=== PATIENT | female | born 1940 | race Caucasian/White ===

== ENCOUNTER 2018-08-26 12:07 | Outpatient (CLI) | payer MEDICARE, BC ==
--- NOTE | 2018-08-26 14:45 | ULT ---
THYROID SONOGRAM: HISTORY: Thyroid nodule. FINDINGS: Right thyroid lobe is 4.6 cm with a homogeneous echotexture. No focal masses. Isthmus is 0.5 cm. Left thyroid lobe is 3.3 cm in length. Centrally, an oval hypoechoic well circumscribed nodule is 0. 5 x 0.5 x 0.3 cm. IMPRESSION: Very small nonspecific hypoechoic solid nodule left thyroid lobe. 0.5 cm. POS: MICHELLE
== END 2018-08-26 12:08 | disposition home or self-care (01) ==
LOC: BICULT 12:07
PROVIDERS: ATTEND Otolaryngology Plastic Surgery within the Head & Neck
DX: E04.1 Nontoxic single thyroid nodule (principal)
CPT/HCPCS: 76536

== ENCOUNTER 2018-09-02 15:19 | Outpatient (CLI) | payer MEDICARE, BC | END 2018-09-02 15:20 | disposition home or self-care (01) | LOC: BICMAMMO 15:19 | PROVIDERS: ATTEND Internal Medicine | DX: Z12.31 Encounter for screening mammogram for malignant neoplasm of breast (principal); Z80.3 Family history of malignant neoplasm of breast; Z85.3 Personal history of malignant neoplasm of breast | CPT/HCPCS: 77063; 77067 ==

== ENCOUNTER 2019-09-11 13:06 | Outpatient (CLI) | payer MEDICARE, BC ==
--- NOTE | 2019-09-11 13:59 | MMO ---
Bilateral MAMMO Bilat Screen [facility]. CLINICAL HISTORY: Patient is 78 years old and is seen for screening. The patient has the following family history of breast cancer: 2 maternal aunts and paternal aunt. The patient has a history of right Stereotatic Biopsy in June, - benign, left Lumpectomy in 07/2003 - malignant and left Radiation Therapy in 2002 - 35 treatments. VIEWS: The views performed were: bilateral craniocaudal with tomosynthesis; bilateral mediolateral oblique with tomosynthesis; left mediolateral oblique; and left exaggerated craniocaudal. FILMS COMPARED: The present examination has been compared to prior imaging studies performed at [facility] on 08/13/2015, 08/14/2016, 08/27/2017 and 09/02/2018. This study has been interpreted with the assistance of computer-aided detection. MAMMOGRAM FINDINGS: There are scattered fibroglandular densities. Finding 1: There are stable post operative changes seen in the left breast. Finding 2: There are stable benign appearing calcifications seen in both breasts. Finding 3: There is a biopsy clip seen in the right breast. There are no suspicious masses, suspicious calcifications, or new areas of architectural distortion. IMPRESSION: THERE IS NO MAMMOGRAPHIC EVIDENCE OF MALIGNANCY. A ROUTINE FOLLOW-UP MAMMOGRAM IN 1 YEAR IS RECOMMENDED. THE RESULTS OF THIS EXAM WERE SENT TO THE PATIENT. ACR BI-RADS Category 2 - Benign finding MAMMOGRAPHY NOTE: 1. A negative mammogram report should not delay a biopsy if a dominant of clinically suspicious mass is present. 2. Approximately 10% to 15% of breast cancers are not detected by mammography. 3. Adenosis and dense breasts may obscure an underlying neoplasm. Reported by: SARA OCBOS MD Electonically Signed: [id number]
== END 2019-09-11 13:07 | disposition home or self-care (01) ==
LOC: BICMAMMO 13:06
PROVIDERS: ATTEND Internal Medicine
DX: Z12.31 Encounter for screening mammogram for malignant neoplasm of breast (principal); Z80.3 Family history of malignant neoplasm of breast
CPT/HCPCS: 77063; 77067

== ENCOUNTER 2020-09-13 10:14 | Outpatient (CLI) | payer MEDICARE, BC ==
--- NOTE | 2020-09-13 10:51 | MMO ---
Bilateral MAMMO Bilat Screen [facility]. CLINICAL HISTORY: Patient is 79 years old and is seen for screening. The patient has the following family history of breast cancer: 2 maternal aunts and paternal aunt. The patient has a history of right Stereotatic Biopsy in June, - benign, left Lumpectomy in 07/2003 - malignant and left Radiation Therapy in 2002 - 35 treatments. VIEWS: The views performed were: bilateral craniocaudal with tomosynthesis and bilateral mediolateral oblique with tomosynthesis. FILMS COMPARED: The present examination has been compared to prior imaging studies performed at [facility] on 08/14/2016, 08/27/2017, 09/02/2018 and 09/11/2019. This study has been interpreted with the assistance of computer-aided detection. MAMMOGRAM FINDINGS: There are scattered fibroglandular densities. New mass density mid left breast. In the right breast, there are no suspicious masses, calcifications or areas of architectural distortion. IMPRESSION: FINDING IN THE LEFT BREAST REQUIRES ADDITIONAL EVALUATION. SPOT COMPRESSION IS RECOMMENDED. AN ULTRASOUND EXAM IS RECOMMENDED IF NEEDED. ADDITIONAL IMAGING. THE RESULTS OF THIS EXAM WERE SENT TO THE PATIENT. ACR BI-RADS Category 0 - Incomplete: Need additional imaging evaluation. [facility] will notify the patient of the need for additional imaging services. MAMMOGRAPHY NOTE: 1. A negative mammogram report should not delay a biopsy if a dominant of clinically suspicious mass is present. 2. Approximately 10% to 15% of breast cancers are not detected by mammography. 3. Adenosis and dense breasts may obscure an underlying neoplasm. Reported by: MITCHEL VAZQUEZ MD Electonically Signed: [id number]
== END 2020-09-13 10:15 | disposition home or self-care (01) ==
LOC: BICMAMMO 10:14
PROVIDERS: ATTEND Internal Medicine
DX: Z12.31 Encounter for screening mammogram for malignant neoplasm of breast (principal); R92.8 Other abnormal and inconclusive findings on diagnostic imaging of breast; N63.20 Unspecified lump in the left breast, unspecified quadrant; Z91.89 Other specified personal risk factors, not elsewhere classified; Z85.3 Personal history of malignant neoplasm of breast; Z80.3 Family history of malignant neoplasm of breast; Z98.890 Other specified postprocedural states
CPT/HCPCS: 77063; 77067

== ENCOUNTER 2020-09-23 08:53 | Outpatient (CLI) | payer MEDICARE, BC ==
--- NOTE | 2020-09-23 09:26 | ULT ---
EXAM: US Breast Limited Lt PROVIDED CLINICAL HISTORY: Abnormal mammogram COMPARISON: Diagnostic mammogram 09/23/2020 FINDINGS: Limited sonographic interrogation of the left breast was performed in the region of mammographic conc guero at the 12:00 position. There is a irregularly marginated, hypoechoic mass with posterior shadowing demonstrated in the region of mammographic concern. This measures at least 1.[address] dimension. IMPRESSION: 1.2 cm irregular hypoechoic mass, for which ultrasound-guided biopsy is recommended. Findings and rec ommendations discussed with the patient and questions answered. BI-RADS 4 -- suspicious abnormality, biopsy recommended
--- NOTE | 2020-09-23 09:26 | MMO ---
Left Breast MAMMO Unilat Diag [facility]. CLINICAL HISTORY: Patient is 79 years old and is seen for additional evaluation requested from prior study. The patient has the following family history of breast cancer: 2 maternal aunts and paternal aunt. The patient has a history of right Stereotatic Biopsy in June, - benign, left Lumpectomy in 07/2003 - malignant and left Radiation Therapy in 2002 - 35 treatments. VIEWS: The views performed were: left craniocaudal spot compression with tomosynthesis; left mediolateral oblique spot compression with tomosynthesis; and left mediolateral with tomosynthesis. FILMS COMPARED: The present examination has been compared to prior imaging studies performed at [facility] on 09/02/2018, 09/11/2019, 09/13/2020 and 09/23/2020. This study has been interpreted with the assistance of computer-aided detection. MAMMOGRAM FINDINGS: There are scattered fibroglandular densities. There is a focal asymmetry measuring 10 millimeters seen in the left breast at 12 o'clock. A corresponding hypoechoic mass is demonstrated by ultrasound. IMPRESSION: FOCAL ASYMMETRY IN THE LEFT BREAST IS SUSPICIOUS. AN ULTRASOUND-GUIDED BREAST BIOPSY IS RECOMMENDED. THE RESULTS OF THIS EXAM WERE SENT TO THE PATIENT. ACR BI-RADS Category 4 - Suspicious abnormality - biopsy should be considered MAMMOGRAPHY NOTE: 1. A negative mammogram report should not delay a biopsy if a dominant of clinically suspicious mass is present. 2. Approximately 10% to 15% of breast cancers are not detected by mammography. 3. Adenosis and dense breasts may obscure an underlying neoplasm. Reported by: SARA COBOS MD Electonically Signed: [id number]
--- NOTE | 2020-09-23 13:37 | MMO ---
FILMS COMPARED: The present examination has been compared to prior imaging studies performed at [facility] on 09/11/2019, 09/13/2020 and 09/23/2020. MAMMOGRAM FINDINGS: There are scattered fibroglandular densities. There is a new biopsy clip seen in the left breast. This is immediately medial and posterior to the mammographic abnormality. IMPRESSION: NEW BIOPSY CLIP IN THE LEFT BREAST IS CONFIRMED UTILIZING POST PROCEDURE MAMMOGRAM. Reported by: SARA COBOS MD Electonically Signed: [id number]
--- NOTE | 2020-09-23 13:41 | ULT ---
EXAM: Ultrasound-guided left breast biopsy PROVIDED CLINICAL HISTORY: Left breast mass COMPARISON: Ultrasound earlier same date FINDINGS: Limited sonographic interrogation was performed of the left breast, with localization of the previous ly described mass. Informed consent was obtained from the patient. The skin overlying this region was prepped and draped in the usual sterile manner and the soft tissues anesthetized with 1% buffered lidocaine. A small skin incision was made. Continuous ultrasound guidance was utilized to obtain 4 core samples of the mass. Subsequently, continuous ultrasound guidance was utilized to place a biopsy site marker. Cassatt were withdrawn and hemostasis achieved. No immediate complications. IMPRESSION: Technically successful left breast biopsy. Please correlate with histology results to follow.
== END 2020-09-23 08:54 | disposition home or self-care (01) ==
LOC: BICMAMMO 08:53
PROVIDERS: ATTEND Internal Medicine
DX: C50.812 Malignant neoplasm of overlapping sites of left female breast (principal)
CPT/HCPCS: 19083; 76642; 77065; 88305; 88341; 88342; G0279

== ENCOUNTER 2020-10-25 06:23 | Outpatient (CLI) | payer MEDICARE, BC ==
[2020-10-25 10:20] LABS: #Basophils 0.1 10x3/uL (0.0-0.2); #Eosinphils 0.4 10x3/uL (0.0-0.5); #Monocytes 0.7 10x3/uL (0.0-1.1); %Basophils 0.7 % (0.0-2.0); %Eosinophils 5.8 % (0.0-6.0); %Lymphocytes 26.9 % (18.0-47.0); %Monocytes 9.7 % (0.0-10.0); %Neutrophils 56.6 % (40.0-75.0); Hemoglobin 13.4 g/dL (12.0-16.0); Mean Corpuscular HGB CONC 31.5 G/DL (32.0-36.0); Mean Corpuscular Hemoglobin 28.5 PG (27.0-33.0); Mean Corpuscular Volume 90.2 fl (80.0-100.0); Platelet Count 197 10x3/uL (130-400); Red Blood Cell (RBC) Count 4.71 10x6/uL (3.90-5.20); White Blood Cell (WBC) Count 7.1 10x3/uL (4.5-11.0)
[2020-10-25 10:40] LABS: ALT (SGPT) 17 U/L (8-55); AST (SGOT) 19 U/L (5-34); Albumin 4.1 g/dL (3.4-4.8); Alkaline Phosphatase 146 U/L (40-110); Anion Gap 15 mmol/L (10-20); BUN (Urea Nitrogen) 23 mg/dL (9.8-20.1); Bilirubin, Total 0.4 mg/dL (0.2-1.2); Calc. Creatinine Clearance 0 mL/min (70-130); Calcium 9.1 mg/dL (7.8-10.44); Carbon Dioxide 27 mmol/L (23-31); Chloride 105 mmol/L (98-107); Globulin 3.2 g/dL (2.4-3.5); Glucose 106 mg/dL (83-110); Potassium 4.4 mmol/L (3.5-5.1); Protein, Total 7.3 g/dL (6.0-8.3); Sodium 143 mmol/L (136-145)
[2020-10-25 17:13] LABS: SARS-CoV-2 MS2 Positive; SARS-CoV-2 N Gene Negative; SARS-CoV-2 S Gene Negative; SARS-CoV-2 by NAA Not Detected (NotDetected); SARS-CoV-2 orf1ab Negative
== END 2020-10-25 06:24 | disposition home or self-care (01) ==
LOC: LABBT 06:23
PROVIDERS: ATTEND Surgery
DX: Z01.812 Encounter for preprocedural laboratory examination (principal); Z20.828 Contact with and (suspected) exposure to other viral communicable diseases; C50.912 Malignant neoplasm of unspecified site of left female breast
CPT/HCPCS: 80053; 85025; U0003; 87635

== ENCOUNTER 2020-10-25 08:15 | Inpatient (IN) | payer MEDICARE, BC ==
[2020-10-29 08:28] VITALS: BMI 35.9
[2020-10-30] MEDS ORDERED: Lidocaine 1% w/Epinephrine 1:100K 20 ML VIAL ONE (08:45)
[2020-10-30] MEDS ORDERED: Bupivacaine 0.25% HCL 30 ML VIAL ONE (08:45)
[2020-10-30] MEDS ORDERED: Fentanyl 250 MCG/5 ML VIAL ONE (08:50)
[2020-10-30] MEDS ORDERED: Midazolam HCl 2 mg/2 ml Vial ONE (08:50)
[2020-10-30] MEDS ORDERED: Dexamethasone 20 MG/5 ML VIAL ONE (09:07)
[2020-10-30] MEDS ORDERED: Lidocaine 1% PF 5 ML VIAL ONE (09:07)
[2020-10-30] MEDS ORDERED: Ondansetron PF 4 MG/2 ML Vial ONE (09:07)
[2020-10-30] MEDS ORDERED: PROPOFOL 200 MG/20 ML VIAL ONE (09:07)
[2020-10-30] MEDS ORDERED: Promethazine HCl 25 MG/ML VIAL IM PRN ×2 (10:37→10:50)
[2020-10-30] MEDS ORDERED: Ondansetron HCl/PF 4 MG/2 ML Vial IVP PRN (10:37)
[2020-10-30] MEDS ORDERED: Promethazine HCl 25 MG/ML VIAL SLOW IVP PRN (10:37)
[2020-10-30] MEDS ORDERED: Morphine 4 MG/ML VIAL SLOW IVP PRN (10:50)
[2020-10-30] MEDS ORDERED: Dextrose 50% Abboject 50 ML SYRINGE SLOW IVP PRN (10:50)
[2020-10-30] MEDS ORDERED: Dextrose 5% in Water 1,000 ML IV PRN (10:50)
[2020-10-30] MEDS ORDERED: HYDROcodone/Acetaminophen 10/325 mg Tablet PO PRN ×2 (10:50)
[2020-10-30] MEDS ORDERED: Morphine 2 MG/ML VIAL SLOW IVP PRN (10:50)
[2020-10-30] MEDS ORDERED: hydrALAZINE 20 MG/ML VIAL SLOW IVP PRN (10:50)
[2020-10-30] MEDS ORDERED: Ondansetron PF 4 MG/2 ML Vial IVP PRN (10:50)
--- NOTE | 2020-10-30 11:43 | OP ---
DATE OF PROCEDURE: 10/30/2020 PREOPERATIVE DIAGNOSIS: Recurrent left breast cancer. PROCEDURE PERFORMED: Left total mastectomy. INDICATIONS: This is a 79-year-old female who had had a previous lumpectomy and axillary sampling done in 2002, who had postoperative radiation and developed a recurrent breast cancer. FINDINGS: A very dense breast due to radiation changes. Her axilla was on accessible safely because the previous dissection basically had scarred up the axilla so bad that the anatomical planes were not safely visualized, so that was aborted. DESCRIPTION OF PROCEDURE: After informed consent was obtained, the patient was taken to the operating room and given general endotracheal anesthesia. She was placed in the supine position. Her chest was prepped and draped in usual fashion. An elliptical incision was performed around the breast margins, and the plane was developed between subcutaneous tissue and breast tissue sharply utilizing the plasma blade to the level of the clavicle superior sternum medially, rectus inferiorly, and latissimus laterally. Then, this was removed off the pectoralis muscle to include the fascia with the plasma blade. Specimen was marked with a suture superiorly. Hemostasis was achieved with the plasma blade. An attempt was made to do an axillary dissection. However, there were multiple clips seen as I started the deeper into the axilla. More clips were found, and it was so dense with the scar tissue. I could not safely identify the planes. I tried going along the inferior margin of the pectoralis in the axilla, again extreme scar making this extremely difficult to safely resect any lymph nodes. I did not feel any obvious disease in the area, but I was unable to obtain any specimen. The wound was thoroughly irrigated. Hemostasis was assured. Two drains were placed, one towards the axilla, one under the flap and the subcu was reapproximated with interrupted 3-0 Vicryl. The skin was closed with a running subcuticular of 4-0 Rapide. Steri-Strips applied. Sterile bandage applied. The patient tolerated the procedure well and transferred to Recovery in good condition. Sponge and needle count verified correct x2. Job ID: [id number]
[2020-10-30] MEDS ORDERED: Fentanyl 100 MCG/2 ML VIAL ONE ×2 (12:20→15:43)
[2020-10-30] MEDS: Lactated Ringer's 1,000 ML IV SCH ×2 (19:54→22:02)
[2020-10-30] MEDS ORDERED: Atorvastatin Calcium 10 MG TAB PO SCH (21:30)
[2020-10-30] MEDS ORDERED: ALPRAZolam 0.5 MG TAB PO SCH (21:30)
[2020-10-30] MEDS ORDERED: Temazepam 15 MG CAP PO SCH (21:30)
[2020-10-30] MEDS: Famotidine 20 MG TAB PO SCH (21:44)
[2020-10-31 05:48] LABS: #Lymphocytes 1.3 thou/uL (1.20-3.40); #Monocytes 1.1 thou/uL (0.11-0.59); #Neutrophils 8.1 thou/uL (1.40-6.50); %Eosinophils 0.1 % (0.0-10.0); %Lymphocytes 12.7 % (21.0-51.0); %Monocytes 10.2 % (0.0-10.0); Hemoglobin 11.6 g/dL (12.0-16.0); Mean Corpuscular Hemoglobin 30.2 pg (27.0-31.0); Mean Corpuscular Volume 91.6 fL (78.0-98.0); Mean Platelet Volume 8.2 fL (7.4-10.4); Platelet Count 150 thou/uL (130-400); RBC Distribution Width 12.5 % (11.5-14.5); Red Blood Cell (RBC) Count 3.83 mill/uL (4.20-5.40); White Blood Cell (WBC) Count 10.5 thou/uL (4.8-10.8)
[2020-10-31 06:21] LABS: Anion Gap 14 mmol/L (10-20); BUN (Urea Nitrogen) 15 mg/dL (9.8-20.1); Calc. Creatinine Clearance 93 mL/min (70-130); Calcium 8.2 mg/dL (7.8-10.44); Carbon Dioxide 22 mmol/L (23-31); Chloride 105 mmol/L (98-107); Glucose 128 mg/dL (83-110); Potassium 4.2 mmol/L (3.5-5.1); Sodium 137 mmol/L (136-145)
[2020-10-31] MEDS ORDERED: Enoxaparin Sodium 40 MG/0.4 ML SYRINGE SC SCH (09:00)
[2020-10-31] MEDS ORDERED: Aripiprazole 10 MG TAB PO SCH (09:00)
[2020-10-31] MEDS ORDERED: Calcium Carbonate 600 MG + Vit D TAB PO SCH (09:00)
[2020-10-31] MEDS ORDERED: FLUoxetine HCl 20 MG CAP PO SCH (09:00)
[2020-10-31] MEDS: Famotidine 20 MG TAB PO SCH (10:37)
[2020-10-31 16:32] VITALS: BP 110/73; TEMP 97.6
[2020-10-31] MEDS ORDERED: Temazepam 15 MG CAP PO SCH (21:00)
[2020-10-31] MEDS ORDERED: ALPRAZolam 0.5 MG TAB PO SCH (21:00)
[2020-10-31] MEDS ORDERED: Atorvastatin Calcium 10 MG TAB PO SCH (21:00)
--- NOTE | 2020-11-01 12:42 | DIS ---
DATE OF ADMISSION: 10/30/2020 DATE OF DISCHARGE: 10/31/2020 DISCHARGE DIAGNOSIS: Recurrent left breast cancer. PROCEDURES DURING ADMISSION: Left total mastectomy. HOSPITAL COURSE: The patient was admitted, taken to the operating room, where she underwent a mastectomy. We attempted the lymph node portion of it, but the scar tissue was so incredible from previous surgery that it was not safe to try and do a dissection, so the lymph node portion was aborted, although there were no palpable lymph nodes. She is doing fine. Her pain is controlled. She is eating. She is discharged home on her usual medications plus hydrocodone and Zofran. She will follow up with me in 2 weeks with drains. She will monitor the output and write it down for me. She will follow up with me on Wednesday. Job ID: [id number]
== END 2020-10-31 16:48 | disposition home or self-care (01) | DRG 583 ==
LOC: SURG A 10-30 07:08 → SURG B 10-30 18:10
PROVIDERS: ADMIT Surgery; ATTEND Surgery
PROC: 0HTU0ZZ Resection of Left Breast, Open Approach (ICD-10-PCS; principal; 2020-10-30)
DX: C50.912 Malignant neoplasm of unspecified site of left female breast (principal); Z90.710 Acquired absence of both cervix and uterus; Z90.49 Acquired absence of other specified parts of digestive tract; Z79.899 Other long term (current) drug therapy; E78.5 Hyperlipidemia, unspecified; F41.9 Anxiety disorder, unspecified; F32.9 Major depressive disorder, single episode, unspecified; K21.9 Gastro-esophageal reflux disease without esophagitis; Z98.890 Other specified postprocedural states; Z98.42 Cataract extraction status, left eye; Z98.41 Cataract extraction status, right eye
CPT/HCPCS: 36415; 80048; 85025; 88307; J0690; J1100; J1650; J2250; J2405; J2704; J3010; S0020

== ENCOUNTER 2021-02-28 10:22 | Outpatient (CLI) | payer MEDICARE, BC | END 2021-02-28 10:23 | disposition home or self-care (01) | LOC: BICMAMMO 10:22 | PROVIDERS: ATTEND Internal Medicine Hematology & Oncology | DX: Z13.820 Encounter for screening for osteoporosis (principal); Z78.0 Asymptomatic menopausal state | CPT/HCPCS: 77080 ==

== ENCOUNTER 2021-09-19 10:15 | Outpatient (CLI) | payer MEDICARE, BC | END 2021-09-19 10:16 | disposition home or self-care (01) | LOC: BICMAMMO 10:15 | PROVIDERS: ATTEND Internal Medicine Hematology & Oncology | DX: Z08 Encounter for follow-up examination after completed treatment for malignant neoplasm (principal); Z85.3 Personal history of malignant neoplasm of breast | CPT/HCPCS: 77065; G0279 ==

== ENCOUNTER 2022-09-21 13:05 | Outpatient (CLI) | payer MEDICARE, BC | END 2022-09-21 13:06 | disposition home or self-care (01) | LOC: BICMAMMO 13:05 | PROVIDERS: ATTEND Internal Medicine Hematology & Oncology | DX: Z13.820 Encounter for screening for osteoporosis (principal); C50.812 Malignant neoplasm of overlapping sites of left female breast; T38.6X5A Adverse effect of antigonadotrophins, antiestrogens, antiandrogens, not elsewhere classified, initial encounter; R92.1 Mammographic calcification found on diagnostic imaging of breast; R92.2 Inconclusive mammogram | CPT/HCPCS: 77065; 77080; G0279 ==

== ENCOUNTER 2022-09-23 08:42 | Outpatient (CLI) | payer MEDICARE, BC | END 2022-09-23 08:43 | disposition home or self-care (01) | LOC: NM 08:42 | PROVIDERS: ATTEND Surgery | DX: C50.919 Malignant neoplasm of unspecified site of unspecified female breast (principal) | CPT/HCPCS: 78306; A9503 ==

== ENCOUNTER 2023-10-13 15:22 | Emergency (ER) | payer MEDICARE, BC ==
[~2023-10-13 15:22] MED LIST: Iopamidol-370 76% 500 ML MDV (1 ML CHARGE) ONE
[2023-10-13 16:18] LABS: #Eosinphils 0.1 thou/uL (0.0-0.7); #Monocytes 0.5 thou/uL (0.11-0.59); #Neutrophils 5.2 thou/uL (1.40-6.50); %Basophils 0.1 % (0.0-1.0); %Eosinophils 0.9 % (0.0-10.0); %Monocytes 7.1 % (0.0-10.0); %Neutrophils 75.6 % (42.0-75.0); Hematocrit 42.4 % (36.0-47.0); Hemoglobin 13.6 g/dL (12.0-16.0); Mean Corpuscular HGB CONC 32.1 g/dL (32.0-36.0); Mean Corpuscular Hemoglobin 29.6 pg (27.0-31.0); Mean Corpuscular Volume 92.2 fl (78.0-98.0); Mean Platelet Volume 10.5 fL (7.4-10.4); Platelet Count 175 10x3/uL (130-400); RBC Distribution Width 14.3 % (11.5-14.5); White Blood Cell (WBC) Count 6.9 10x3/uL (4.8-10.8)
[2023-10-13 16:42] LABS: ALT (SGPT) 12 U/L (8-55); AST (SGOT) 19 U/L (5-34); Alkaline Phosphatase 159 U/L (40-110); Anion Gap 14 mmol/L (10-20); BUN (Urea Nitrogen) 19 mg/dL (9.8-20.1); Bilirubin, Total 0.7 mg/dL (0.2-1.2); Calc. Creatinine Clearance 0 mL/min (70-130); Calcium 9.3 mg/dL (7.8-10.44); Carbon Dioxide 25 mmol/L (23-31); Chloride 103 mmol/L (98-107); Estimated GFR 51; Globulin 2.6 g/dL (2.4-3.5); Glucose 143 mg/dL (83-110); Lipase 6 U/L (8-78); Magnesium 1.8 mg/dL (1.6-2.6); Potassium 3.9 mmol/L (3.5-5.1); Protein, Total 6.6 g/dL (5.8-8.1); Sodium 138 mmol/L (136-145)
[2023-10-13 16:44] LABS: Troponin I 0.013 ng/mL (< 0.028)
[2023-10-13] MEDS ORDERED: Ondansetron PF 4 MG/2 ML Vial ONE (17:14)
== END 2023-10-13 20:15 | disposition home or self-care (01) ==
LOC: ERS 15:22
DX: S32.021A Stable burst fracture of second lumbar vertebra, initial encounter for closed fracture (principal); K59.00 Constipation, unspecified; R11.0 Nausea; W19.XXXA Unspecified fall, initial encounter
CPT/HCPCS: 36415; 71045; 72100; 72131; 74177; 80053; 83690; 83735; 84484; 85025; 93005; J2405; Q9967

== ENCOUNTER 2023-10-22 14:09 | Outpatient (CLI) | payer MEDICARE, BC | END 2023-10-22 14:10 | disposition home or self-care (01) | LOC: RAD 14:09 | PROVIDERS: ATTEND Physician Assistant | DX: S32.021A Stable burst fracture of second lumbar vertebra, initial encounter for closed fracture (principal) | CPT/HCPCS: 72100 ==

== ENCOUNTER 2023-12-28 14:16 | Outpatient (CLI) | payer BC, MEDICARE | END 2023-12-28 14:17 | disposition home or self-care (01) | LOC: BICMAMMO 14:16 | PROVIDERS: ATTEND Internal Medicine Hematology & Oncology | DX: Z13.820 Encounter for screening for osteoporosis (principal); Z08 Encounter for follow-up examination after completed treatment for malignant neoplasm; M85.89 Other specified disorders of bone density and structure, multiple sites; Z85.3 Personal history of malignant neoplasm of breast | CPT/HCPCS: 77065; 77080; G0279 ==

== ENCOUNTER 2024-09-01 12:59 | Outpatient (CLI) | payer MEDICARE, OTHER ==
[~2024-09-01 12:59] MED LIST changes: -Iopamidol-370 76% 500 ML MDV (1 ML CHARGE) ONE; +Magnevist 469MG/ML 20 ML VIAL ONE
== END 2024-09-01 13:00 | disposition home or self-care (01) ==
LOC: MRI 12:59
PROVIDERS: ATTEND Family Medicine
DX: R47.81 Slurred speech (principal); I67.89 Other cerebrovascular disease; R90.89 Other abnormal findings on diagnostic imaging of central nervous system; G93.89 Other specified disorders of brain
CPT/HCPCS: 36415; 70553; 76376; 82565

== ENCOUNTER 2024-09-02 11:29 | Observation (INO) | payer MEDICARE, OTHER ==
[~2024-09-02 11:29] MED LIST changes: +Iopamidol-370 76% 500 ML MDV (1 ML CHARGE) ONE; -Magnevist 469MG/ML 20 ML VIAL ONE
[2024-09-02 12:00] LABS: #Basophils 0.04 10x3/uL (0.0-0.2); %Basophils 0.5 % (0.0-1.0); %Eosinophils 2.6 % (0.0-10.0); %Lymphocytes 14.2 % (21.0-51.0); %Monocytes 7.8 % (0.0-10.0); %Neutrophils 74.6 % (42.0-75.0); Hematocrit 45.6 % (36.0-47.0); Hemoglobin 15.1 g/dL (12.0-16.0); Mean Corpuscular HGB CONC 33.1 g/dL (32.0-36.0); Mean Corpuscular Volume 90.7 fL (78.0-98.0); Mean Platelet Volume 10.9 fL (7.4-10.4); Platelet Count 184 10x3/uL (130-400); RBC Distribution Width 13.3 % (11.5-14.5); Red Blood Cell (RBC) Count 5.03 mill/uL (4.20-5.40)
[2024-09-02 12:12] LABS: PTT 24.6 sec (22.9-36.1); Prothrombin Time 13.3 sec (12.0-14.7)
[2024-09-02 12:14] LABS: ALT (SGPT) 11 U/L (8-55); AST (SGOT) 15 U/L (5-34); Albumin 3.8 g/dL (3.4-4.8); Alkaline Phosphatase 116 U/L (40-110); Anion Gap 12 mmol/L (10-20); BUN (Urea Nitrogen) 16 mg/dL (9.8-20.1); Bilirubin, Total 0.7 mg/dL (0.2-1.2); Calc. Creatinine Clearance 0 mL/min (70-130); Calcium 9.7 mg/dL (7.8-10.44); Carbon Dioxide 26 mmol/L (23-31); Chloride 107 mmol/L (98-107); Estimated GFR 55; Globulin 3.4 g/dL (2.4-3.5); Glucose 140 mg/dL (83-110); Potassium 4.2 mmol/L (3.5-5.1); Protein, Total 7.2 g/dL (5.8-8.1); Sodium 141 mmol/L (136-145)
[2024-09-02 12:27] LABS: Magnesium 2.1 mg/dL (1.6-2.6)
[2024-09-02 12:33] LABS: Troponin I 0.017 ng/mL (< 0.028)
[2024-09-02] MEDS ORDERED: Acetaminophen 325 MG TAB PO PRN (17:16)
[2024-09-02] MEDS ORDERED: Ondansetron PF 4 MG/2 ML Vial IVP PRN (17:16)
[2024-09-02] MEDS ORDERED: Bisacodyl 5 MG TAB PO PRN (17:16)
[2024-09-02] MEDS ORDERED: hydrALAZINE 20 MG/ML VIAL SLOW IVP PRN (17:16)
[2024-09-02 18:28] VITALS: BMI 30.2
[2024-09-02] MEDS: FLU (Fluad Triv) TS24-25 (65UP)/MF59C/PF 45 MCG/0.5 ML Syringe IM ONE (21:16)
[2024-09-02] MEDS: Atorvastatin Calcium 40 MG TAB PO SCH (21:35)
[2024-09-02] MEDS: ALPRAZolam 0.5 MG TAB PO SCH (21:35)
[2024-09-02] MEDS: Aspirin 325 mg Enteric Coated Tablet PO SCH (21:37)
[2024-09-03] MEDS: Melatonin 3 MG TAB PO SCH (00:29)
[2024-09-03 04:57] LABS: #Basophils 0.03 10x3/uL (0.0-0.2); %Basophils 0.4 % (0.0-1.0); %Eosinophils 3.8 % (0.0-10.0); %Lymphocytes 23.2 % (21.0-51.0); %Monocytes 10.8 % (0.0-10.0); %Neutrophils 61.6 % (42.0-75.0); Hematocrit 41.6 % (36.0-47.0); Hemoglobin 13.5 g/dL (12.0-16.0); Mean Corpuscular HGB CONC 32.5 g/dL (32.0-36.0); Mean Corpuscular Hemoglobin 30.7 pg (27.0-31.0); Mean Corpuscular Volume 94.5 fL (78.0-98.0); Mean Platelet Volume 10.3 fL (7.4-10.4); Platelet Count 156 10x3/uL (130-400); RBC Distribution Width 13.4 % (11.5-14.5)
[2024-09-03 05:17] LABS: Anion Gap 8 mmol/L (10-20); BUN (Urea Nitrogen) 14 mg/dL (9.8-20.1); Calc. Creatinine Clearance 59 mL/min (70-130); Calcium 9.3 mg/dL (7.8-10.44); Carbon Dioxide 29 mmol/L (23-31); Chloride 106 mmol/L (98-107); Cholesterol 127 mg/dl (< 200 Desired); Estimated GFR 54; Glucose 110 mg/dL (83-110); HDL Cholesterol 43 mg/dL (>60 Neg Risk); LDL Cholesterol, Calculated 65 mg/dL; Potassium 4.2 mmol/L (3.5-5.1); Sodium 139 mmol/L (136-145); Triglycerides 94 mg/dL (Less than 150)
[2024-09-03] MEDS: Enoxaparin 40 MG (0.4 mL) SYRINGE SC SCH (09:48)
[2024-09-03] MEDS: Aspirin 81 mg Enteric Coated Tablet PO SCH (09:48)
[2024-09-03] MEDS: FLUoxetine HCl 20 MG CAP PO SCH (09:48)
[2024-09-03] MEDS: FLU (Fluad Triv) TS24-25 (65UP)/MF59C/PF 45 MCG/0.5 ML Syringe IM ONE (21:12)
[2024-09-03] MEDS: Melatonin 3 MG TAB PO PRN (21:12)
[2024-09-04 10:23] VITALS: TEMP 98.2
[2024-09-04 17:33] VITALS: BP 136/91
== END 2024-09-04 12:21 | disposition home or self-care (01) ==
LOC: ERS 11:29 → 2SE 16:59
PROVIDERS: ADMIT Internal Medicine; ATTEND Internal Medicine
DX: I63.9 Cerebral infarction, unspecified (principal); E78.5 Hyperlipidemia, unspecified; F41.9 Anxiety disorder, unspecified; F32.A Depression, unspecified; K21.9 Gastro-esophageal reflux disease without esophagitis; Z85.3 Personal history of malignant neoplasm of breast; Z90.710 Acquired absence of both cervix and uterus; Z90.12 Acquired absence of left breast and nipple; Z90.49 Acquired absence of other specified parts of digestive tract; Z98.890 Other specified postprocedural states; Z98.41 Cataract extraction status, right eye; Z98.42 Cataract extraction status, left eye; Z79.82 Long term (current) use of aspirin; Z79.01 Long term (current) use of anticoagulants; Z79.899 Other long term (current) drug therapy
CPT/HCPCS: 70496; 70498; 80048; 80061; 83735; 84484; 85025; 85610; 85730; 93005; 93306; 96372 ×2; 97116 ×2; 97530; 99285; G0378 ×4; J1650 ×2; Q9967; 36415; 80053; 84443

== ENCOUNTER 2024-10-09 09:44 | Outpatient (CLI) | payer MEDICARE, OTHER ==
[2024-10-09] MEDS ORDERED: Magnevist 469MG/ML 20 ML VIAL ONE (15:43)
== END 2024-10-09 09:45 | disposition home or self-care (01) ==
LOC: MRI 09:44
PROVIDERS: ATTEND Family Medicine
DX: R94.02 Abnormal brain scan (principal); I63.512 Cerebral infarction due to unspecified occlusion or stenosis of left middle cerebral artery
CPT/HCPCS: 70553; 76376